=== PATIENT | male | born 1995 | race African-American/Black ===

== ENCOUNTER 2016-07-22 17:58 | Emergency (ER) | payer SELFPAY ==
[~2016-07-22] VITALS: Ht 185.4 cm; Wt 74.6 kg
[~2016-07-22 17:58] MED LIST: AMBIEN5 MG PO; ULTRAM50 M1 OR; ULTRAM50 M1 PO
[2016-07-22] MEDS ORDERED: NAPROSYN500 MG PO (19:51)
[2016-07-22 20:03] LABS: URINE BILIRUBIN - DIPSTICK NEGATIVE (NEGATIVE); URINE BLOOD DIPSTICK NEGATIVE (NEGATIVE); URINE CLARITY CLEAR; URINE COLOR YELLOW; URINE GLUCOSE - DIPSTICK NEGATIVE (NEGATIVE); URINE KETONE TRACE mg/dL (NEGATIVE); URINE LEUK ESTERASE NEGATIVE (NEGATIVE); URINE NITRITE - DIPSTICK NEGATIVE (Negative); URINE PROTEIN - DIPSTICK NEGATIVE (NEG-TRACE); URINE SPECIFIC GRAVITY 1.015; URINE UROBILINOGEN - DIPSTICK 0.2 E.U./dL (0.2)
[2016-07-22 21:07] VITALS: BP 109/71
== END 2016-07-22 21:09 | disposition home or self-care (01) | DRG 563 ==
LOC: ED 17:58
PROVIDERS: Emergency Medicine
DX: S39.012A Strain of muscle, fascia and tendon of lower back, initial encounter (principal); X50.9XXA Other and unspecified overexertion or strenuous movements or postures, initial encounter; Y93.9 Activity, unspecified; Y92.89 Other specified places as the place of occurrence of the external cause

== ENCOUNTER 2017-08-10 21:26 | Emergency (ER) | payer SELFPAY ==
[~2017-08-10] VITALS: Ht 185.4 cm; Wt 79.5 kg
[~2017-08-10 21:26] MED LIST changes: +NAPROSYN500 MG PO
[2017-08-10 23:11] LABS: URINE BLOOD DIPSTICK TRACE-INTACT (NEGATIVE); URINE COLOR YELLOW; URINE GLUCOSE - DIPSTICK NEGATIVE (NEGATIVE); URINE KETONE TRACE mg/dL (NEGATIVE); URINE NITRITE - DIPSTICK NEGATIVE (Negative); URINE PH 6.5 (4.5-8.0); URINE PROTEIN - DIPSTICK 30 mg/dL (NEG-TRACE); URINE SPECIFIC GRAVITY 1.025; URINE UROBILINOGEN - DIPSTICK >=8.0 E.U./dL (0.2)
[2017-08-10 23:16] LABS: URINE BILIRUBIN - DIPSTICK SMALL (NEGATIVE); URINE CLARITY CLOUDY; URINE LEUK ESTERASE MODERATE (NEGATIVE)
[2017-08-10 23:19] LABS: URINE BACTERIA RARE hpf; URINE RBC 0-2 RBC/hpf (0-5); URINE WBC TNTC WBC/hpf (0-5)
[2017-08-10] MEDS ORDERED: CIPROFLOXACN500 MG PO (23:33)
[2017-08-10 23:49] VITALS: BP 122/69
== END 2017-08-10 23:50 | disposition home or self-care (01) | DRG 690 ==
LOC: ED 21:26
PROVIDERS: Emergency Medicine
DX: N39.0 Urinary tract infection, site not specified (principal); R30.0 Dysuria

== ENCOUNTER 2022-01-08 19:21 | Emergency (ER) | payer SELFPAY ==
[~2022-01-08] VITALS: Ht 185.4 cm; Wt 95.0 kg
[2022-01-08] VITALS (11 sets, daily range): BP systolic 106–165; BP diastolic 65–110
[~2022-01-08 19:21] MED LIST changes: +CIPROFLOXACN500 MG PO
[2022-01-08 19:46] LABS: IMMATURE GRANULOCYTES 0.4 % (0.0-5.0); MEAN CORPUSCULAR HGB 29.6 pG CALC (26.0-32.0); MEAN CORPUSCULAR HGB CONC 34.4 g/dL CAL (32.0-36.0); NEUT# 3.22 thou/uL (1.82-7.42); RED BLOOD COUNT 5.5 mill/uL (4.70-6.10)
[2022-01-08 19:47] LABS: HEMATOCRIT 47.4 % (39.0-50.0); HEMOGLOBIN 16.3 g/dl (14.0-18.0); MEAN CELL VOLUME 86.2 fL CALC (80.0-100.0)
[2022-01-08 19:58] LABS: ALBUMIN 4.4 g/dL (3.2-5.0); ALKALINE PHOSPHATASE 81 u/l (38-126); ANION GAP 19 (6-22 (CALC)); BILIRUBIN, TOTAL 0.6 mg/dL (0.0-1.4); BUN 12 mg/dL (9-20); BUN/CREATININE RATIO 10 (12-20 (CALC)); CARBON DIOXIDE 18 mmol/l (22-30); CHLORIDE 108 mmol/l (95-108); CREATININE 1.2 mg/dL (0.7-1.3); GFR FOR AFR.AMER. > 60 ML/MIN (>=60 (CALC)); GFR OTHER RACES > 60 ML/MIN (>=60 (CALC)); POTASSIUM 3.3 mmol/l (3.5-5.1); SGOT/AST 44 u/l (17-59); SODIUM 142 mmol/l (137-146); TOTAL PROTEIN 7.6 g/dL (6.3-8.2)
== END 2022-01-08 21:12 | disposition short-term general hospital (02) | DRG 999 ==
LOC: ED 19:21
PROVIDERS: Emergency Medicine
DX: T20.20XA Burn of second degree of head, face, and neck, unspecified site, initial encounter (principal); T31.20 Burns involving 20-29% of body surface with 0% to 9% third degree burns; T21.21XA Burn of second degree of chest wall, initial encounter; T22.20XA Burn of second degree of shoulder and upper limb, except wrist and hand, unspecified site, initial encounter; T23.202A Burn of second degree of left hand, unspecified site, initial encounter; T23.201A Burn of second degree of right hand, unspecified site, initial encounter; T21.22XA Burn of second degree of abdominal wall, initial encounter; X04.XXXA Exposure to ignition of highly flammable material, initial encounter; Y93.89 Activity, other specified; Y92.007 Garden or yard of unspecified non-institutional (private) residence as the place of occurrence of the external cause